=== PATIENT | male | born 2000 | race African-American/Black ===

== ENCOUNTER 2023-12-04 22:44 | Emergency (ER) | payer MEDICAID ==
[~2023-12-04] VITALS: Ht 190.5 cm; Wt 82.0 kg
[2023-12-04 23:21] VITALS: O2SAT 98
[2023-12-04 23:53] LABS: BASOPHILS % 0.6 % (0.0-2.0); EOSINOPHILS % 1.1 % (0.0-5.0); HEMATOCRIT. 39.6 % (42.0-52.0); LYMPHOCYTES % 27.2 % (20.0-50.0); MEAN CORPUSCULAR HEMOGLOBIN 32.3 pg (28.0-32.0); MEAN CORPUSCULAR HGB CONC 32.9 g/dL (31.0-37.0); MEAN CORPUSCULAR VOLUME 97.9 fL (80.0-94.0); MEAN PLATELET VOLUME 8.8 fl (7.4-10.4); MONOCYTES % 8.2 % (2.0-8.0); NEUTROPHILS % 62.9 % (40.0-76.0); PLATELET 250 x1000/uL (130-400); RED BLOOD CELL COUNT 4.04 mill/uL (4.7-6.1); RED CELL DISTRIBUTION WIDTH 13.1 % (11.6-14.6); WHITE BLOOD COUNT 6.5 x1000/uL (4.5-11.0)
[2023-12-04 23:58] LABS: CHLORIDE 107 mEq/L (98-107); POTASSIUM 4.3 mEq/L (3.5-5.1); SODIUM 138 mEq/L (136-145)
[2023-12-04 23:59] LABS: CALCIUM 10.2 mg/dL (8.7-10.4); CARBON DIOXIDE 26 mEq/L (21-32)
[2023-12-05 00:04] LABS: CREATININE 0.9 mg/dL (0.6-1.3); GLUCOSE 96 mg/dL (70-105); UREA NITROGEN BLOOD 10 mg/dL (9-23)
[2023-12-05 00:06] LABS: ACETAMINOPHEN < 2 ug/mL (10-30)
[2023-12-05 00:10] LABS: ETHANOL BLOOD < 10 mg/dL (<10)
[2023-12-05 12:01] VITALS: BP 130/75; PULSE 70; RESP 18; TEMP 98.4
== END 2023-12-05 13:24 | disposition home or self-care (01) ==
LOC: ER 22:44
DX: R45.851 Suicidal ideations (principal)
CPT/HCPCS: 36415; 80048; 80307; 80320; 80329; 85025; 93005; 99285; G0480